=== PATIENT | female | born 1995 | race African-American/Black ===

== ENCOUNTER 2017-11-05 14:59 | Emergency (ER) | payer OTHER ==
[2017-11-05] MEDS ORDERED: ACETAMINOPHEN 500 MG TAB PO ONE (15:32)
[2017-11-05] MEDS ORDERED: IBUPROFEN 600 MG TAB PO ONE (15:33)
[2017-11-05 16:04] VITALS: BP 123/75
--- NOTE | 2017-11-05 16:08 | EDPHY ---
H & P Time Seen by Provider: 11/05/17 15:08 HPI/ROS: 21-year-old female presents complaining of rolled her right ankle while at work she stepped on a bolster. Since that time is painful to bear weight. No numbness or tingling in her foot. Review of systems As per HPI General no fever no chills no weakness HEENT no eye pain no eye discharge. No eye redness, no sore throat Respiratory no cough, no shortness of breath Cardiac no chest pain, no peripheral edema GI no abdominal pain, no diarrhea, no constipation, no nausea, no vomiting no flank pain, no hematuria, no dysuria Musculoskeletal no myalgias, positive joint pain Heme no easy bruising, no easy bleeding Endo no polyuria, no polydipsia Skin no rashes, no pruritus Neuro no syncope, no dizziness, no headaches Psych is no suicidal ideation, no homicidal ideation Past Medical/Surgical History: Non contributory Social History: Denies alcohol or drug use Smoking Status: Never smoked Physical Exam: 21-year-old female Alert and oriented in no acute distress nontoxic appearance afebrile Atraumatic normocephalic Extraocular muscles intact, anicteric Neck is supple Lungs clear to auscultation no respiratory distress Heart regular rate and rhythm without murmur rub or gallop Abdomen normoactive bowel sounds Extremities no cyanosis clubbing or edema Right Ankle-positive swelling positive ecchymosis positive tenderness to palpation at lateral aspect, no instability, sensation intact, good capillary refill, dorsalis pedis and posterior tibialis intact Constitutional: Initial Vital Signs Temperature (C) 36.9 C 11/05/17 15:05 Heart Rate 74 11/05/17 15:05 Respiratory Rate 16 11/05/17 15:05 Blood Pressure 124/88 H 11/05/17 15:05 O2 Sat (%) 99 11/05/17 15:05 O2 Delivery Mode Room Air Allergies/Adverse Reactions: Penicillins Allergy (Verified 11/05/17 15:08) Home Medications: Medication Instructions Recorded NK [No Known Home Meds] 11/05/17 Medical Decision Making - Diagnostics Imaging Results: Imaging Impressions Ankle X-Ray 11/05/17 15:13 Impression: No acute osseous abnormality. Foot X-Ray 11/05/17 15:15 Impression: No acute osseous abnormality. ED Course/Re-evaluation: Patient seen and evaluated after rolling her ankle. X-ray ankle, x-ray foot negative for fracture Impression Right ankle sprain Plan Terrance wrap Crutches Rice Follow-up PCP Differential Diagnosis: Differential diagnosis considered but not limited to: Ankle fracture, foot fracture, foot sprain, ankle sprain - Data Points Medications Given: Discontinued Medications Acetaminophen (Tylenol) 1,000 mg PO EDNOW ONE Stop: 11/05/17 15:33 Last Admin: 11/05/17 15:38 Dose: 1,000 mg Ibuprofen (Motrin) 600 mg PO EDNOW ONE Stop: 11/05/17 15:34 Last Admin: 11/05/17 15:38 Dose: 600 mg Departure - Departure Disposition: Home, Routine, Self-Care Clinical Impression: Sprain of ankle, right Condition: Good Instructions: Ankle Sprain (ED) Additional Instructions: If not dramatically improving in 3-7 days, follow up with your primary care physician. Referrals: BETTINA HOFFMANN [Other] - As per Instructions Stand Alone Forms: Work Comp Follow Up
== END 2017-11-05 16:22 | disposition home or self-care (01) ==
LOC: CED 14:59
DX: S93.401A Sprain of unspecified ligament of right ankle, initial encounter (principal); W22.8XXA Striking against or struck by other objects, initial encounter; Y92.69 Other specified industrial and construction area as the place of occurrence of the external cause; Y99.0 Civilian activity done for income or pay; Y93.89 Activity, other specified
CPT/HCPCS: 73610-PO; 73630-PO